=== PATIENT | male | born 1980 | race Two or more races ===

== ENCOUNTER 2023-06-10 18:46 | Inpatient (IN) | payer MEDICAID, OTHER ==
[~2023-06-10] VITALS: Ht 165.1 cm; Wt 78.5 kg
[2023-06-10] MEDS ORDERED: ONDANSETRON HCL 4 MG/2 ML VIAL IV ONE (21:15)
[2023-06-10] MEDS ORDERED: MORPHINE SULFATE 4 MG/ML SYR/VIAL IV ONE (21:15)
[2023-06-11 00:18] VITALS: PULSE 108; RESP 22; O2SAT 99
[2023-06-11 00:22] LABS: Basophils # (auto) 0 10 ^3/uL (0-0.2); Basophils % (auto) 0.2 % (0.0-2.0); Eosinophils # (auto) 0 10 ^3/uL (0-0.8); Eosinophils % (auto) 0.1 % (0.0-7.0); Hematocrit 41.8 % (41.0-53.0); Hemoglobin 14.4 g/dL (13.5-17.5); Lymphocytes % (auto) 19.2 % (10.0-50.0); Mean Corpuscular Hemoglobin 31.3 pg (28.0-32.0); Mean Corpuscular Hgb Conc. 34.3 g/dL (32.0-36.0); Mean Corpuscular Volume 91.2 fL (80.0-100.0); Monocytes # (auto) 1.3 10 ^3/uL (0-1.3); Monocytes % (auto) 8.5 % (0.0-12.0); Neutrophils # (auto) 11.1 10 ^3/uL (1.6-8.6); Red Blood Cells 4.59 10^6/uL (4.5-5.90); Red Cell Distribution Width 12.5 % (11.8-14.3); White Blood Cell 15.4 10^3/uL (4.4-10.8)
[2023-06-11] MEDS ORDERED: ONDANSETRON HCL 4 MG/2 ML VIAL IV ONE ×2 (00:30→03:30)
[2023-06-11] MEDS ORDERED: HYDROmorphone HCL 2 MG/ML VL/or syr IV ONE ×2 (00:30→03:30)
[2023-06-11] MEDS ORDERED: ceFAZolin 1GM/50ML 50 ML IV ONE (00:30)
[2023-06-11 00:34] LABS: Alanine Aminotransferase 18 U/L (7-40); Albumin 3.6 g/dL (3.2-4.8); Alkaline Phosphatase 77 U/L (46-116); Anion Gap 11 (5-15); Aspartate Aminotransferase 34 U/L (13-40); BUN/Creatinine Ratio 8.4 (10.0-20.0); Bilirubin, Total 0.4 mg/dL (0.2-1.0); Blood Urea Nitrogen 8 mg/dL (9-23); Calcium 7.7 mg/dL (8.5-10.1); Carbon Dioxide 22 mmol/L (20-30); Chloride 108 mmol/L (98-107); Glucose 102 mg/dL (74-106); Potassium 3.4 mmol/L (3.5-5.1); Sodium 141 mmol/L (136-145)
[2023-06-11 00:35] LABS: Total Protein 5.3 g/dL (5.7-8.2)
[2023-06-11 00:37] LABS: INR 1.02 (0.9-1.15); Prothrombin Time 10.7 sec (9.3-11.8)
[2023-06-11] MEDS ORDERED: ONDANSETRON HCL 4 MG/2 ML VIAL IV PRN (04:00)
[2023-06-11] MEDS ORDERED: POTASSIUM CHL 20 Meq TABLET PO ONE (04:00)
[2023-06-11] MEDS ORDERED: ACETAMINOPHEN 325 MG TAB PO PRN (04:00)
[2023-06-11 05:05] VITALS: PULSE 96; RESP 18; O2SAT 94
[2023-06-11 09:40] VITALS: PULSE 82; RESP 16; O2SAT 97
[2023-06-11] MEDS: HYDROcodone-ACET 5/325MG TAB PO PRN ×2 (10:23→16:01)
[2023-06-11 19:54] VITALS: BP 130/97; PULSE 92; RESP 16; TEMP 98.3; O2SAT 100
[2023-06-11] MEDS: MORPHINE SULFATE INJ 2 MG/ml SYRG IV PRN (20:13)
[2023-06-11 20:54] VITALS: BP 133/82; PULSE 109; RESP 18; TEMP 98.6; O2SAT 98
[2023-06-12] VITALS (7 sets, daily range): BP systolic 111–135; BP diastolic 72–88; PULSE 89–104; RESP 18–19; TEMP 98.3–99.7; O2SAT 95–98
[2023-06-12] MEDS: MORPHINE SULFATE INJ 2 MG/ml SYRG IV PRN ×2 (03:35→14:13)
[2023-06-12 07:05] LABS: Chloride 104 mmol/L (98-107); Potassium 3.6 mmol/L (3.5-5.1); Sodium 136 mmol/L (136-145)
[2023-06-12 07:06] LABS: Anion Gap 7 (5-15); Calcium 9.6 mg/dL (8.7-10.4); Carbon Dioxide 25 mmol/L (20-30)
[2023-06-12 07:11] LABS: BUN/Creatinine Ratio 11.1 (10.0-20.0); Blood Urea Nitrogen 10 mg/dL (9-23); Glucose 105 mg/dL (74-106)
[2023-06-12 07:13] LABS: Basophils # (auto) 0 10 ^3/uL (0-0.2); Basophils % (auto) 0.3 % (0.0-2.0); Eosinophils # (auto) 0 10 ^3/uL (0-0.8); Eosinophils % (auto) 0.1 % (0.0-7.0); Hematocrit 36.2 % (41.0-53.0); Hemoglobin 12.5 g/dL (13.5-17.5); Lymphocytes % (auto) 24.7 % (10.0-50.0); Mean Corpuscular Hemoglobin 31.3 pg (28.0-32.0); Mean Corpuscular Hgb Conc. 34.7 g/dL (32.0-36.0); Mean Corpuscular Volume 90.2 fL (80.0-100.0); Monocytes # (auto) 0.8 10 ^3/uL (0-1.3); Monocytes % (auto) 10.2 % (0.0-12.0); Neutrophils # (auto) 5.4 10 ^3/uL (1.6-8.6); Neutrophils % (auto) 64.7 % (37.0-80.0); Red Blood Cells 4.01 10^6/uL (4.5-5.90); Red Cell Distribution Width 12.1 % (11.8-14.3); White Blood Cell 8.3 10^3/uL (4.4-10.8)
[2023-06-12] MEDS: HYDROcodone-ACET 5/325MG TAB PO PRN (10:55)
[2023-06-12] MEDS: OXYCODONE W/ ACETAMINOPHEN 5/325MG TABLET PO PRN ×2 (18:07→23:35)
[2023-06-13] VITALS (7 sets, daily range): BP systolic 111–137; BP diastolic 75–95; PULSE 73–91; RESP 18–21; TEMP 97.9–98.7; O2SAT 96–99
[2023-06-13] MEDS: OXYCODONE W/ ACETAMINOPHEN 5/325MG TABLET PO PRN ×4 (04:37→23:45)
[2023-06-13] MEDS: MORPHINE SULFATE INJ 2 MG/ml SYRG IV PRN (15:29)
[2023-06-13] MEDS: DOCUSATE SOD 100 MG CAP PO SCH (21:43)
[2023-06-13 23:57] LABS: Urine WBC None Seen /hpf (0 - 3)
[2023-06-14] VITALS (16 sets, daily range): BP systolic 100–130; BP diastolic 62–90; PULSE 79–98; RESP 16–20; TEMP 97.5–99; O2SAT 91–100
[2023-06-14 00:13] LABS: Urine Bacteria NONE SEEN /hpf (None Seen); Urine Blood Negative /uL (Negative); Urine Clarity CLOUDY (Clear); Urine Color Colorless (Yellow); Urine Protein, UAD Negative (Negative); Urine Specific Gravity 1.015 (1.001-1.035); Urine Urobilinogen Normal (Negative); Urine pH 7.5 (5.0-8.0)
[2023-06-14] MEDS ORDERED: ceFAZolin 1GM/50ML 100 ML IV ONE (07:02)
[2023-06-14] MEDS ORDERED: LIDOCAINE 1% (LOCAL ANESTH.) PF 5ml SDV ONE (07:22)
[2023-06-14] MEDS ORDERED: BUPIVACAINE HCL 0.25% P/F 10 ML VIAL ONE (07:22)
[2023-06-14] MEDS ORDERED: KETOROLAC TROMETH 30 MG/ML 1ML VIAL ONE (07:39)
[2023-06-14] MEDS ORDERED: MIDAZOLAM HCL 2MG/2ML 2ml VIAL (1mg/ml) ONE (07:39)
[2023-06-14] MEDS ORDERED: GLYCOPYRROLATE 0.2 MG/ML 1ML VIAL ONE (07:39)
[2023-06-14] MEDS ORDERED: HYDROmorphone HCL 2 MG/ML VL/or syr ONE (07:39)
[2023-06-14] MEDS ORDERED: ONDANSETRON HCL 4 MG/2 ML VIAL ONE (07:39)
[2023-06-14] MEDS ORDERED: PROPOFOL 10 MG/ML 20 ML IV ONE (07:39)
[2023-06-14] MEDS ORDERED: DexAMETHasone SOD PHOS 10MG/1ML VIAL INJ ONE (07:39)
[2023-06-14] MEDS ORDERED: LIDOCAINE HCL 100 MG/5ML (2%) SYRG INJ IV ONE (07:40)
[2023-06-14] MEDS ORDERED: fentaNYL CITRATE 100 MCG/2 ML VL ONE (07:43)
[2023-06-14] MEDS ORDERED: HYDROmorphone HCL 2 MG/ML VL/or syr IV PRN (09:30)
[2023-06-14] MEDS ORDERED: ONDANSETRON HCL 4 MG/2 ML VIAL IV PRN (09:30)
[2023-06-14] MEDS: DOCUSATE SOD 100 MG CAP PO SCH ×2 (11:49→22:00)
[2023-06-15] VITALS (7 sets, daily range): BP systolic 117–131; BP diastolic 72–87; PULSE 75–84; RESP 16–20; TEMP 97.5–98.4; O2SAT 96–97
[2023-06-15 05:49] LABS: Basophils # (auto) 0 10 ^3/uL (0-0.2); Basophils % (auto) 0.1 % (0.0-2.0); Eosinophils # (auto) 0 10 ^3/uL (0-0.8); Eosinophils % (auto) 0.1 % (0.0-7.0); Hematocrit 32.7 % (41.0-53.0); Hemoglobin 11.4 g/dL (13.5-17.5); Lymphocytes # (auto) 1.6 10 ^3/uL (0.4-5.4); Lymphocytes % (auto) 14.9 % (10.0-50.0); Mean Corpuscular Hemoglobin 31.4 pg (28.0-32.0); Mean Corpuscular Hgb Conc. 34.8 g/dL (32.0-36.0); Mean Corpuscular Volume 90.2 fL (80.0-100.0); Monocytes # (auto) 0.5 10 ^3/uL (0-1.3); Monocytes % (auto) 4.5 % (0.0-12.0); Neutrophils # (auto) 8.4 10 ^3/uL (1.6-8.6); Neutrophils % (auto) 80.4 % (37.0-80.0); Red Blood Cells 3.62 10^6/uL (4.5-5.90); Red Cell Distribution Width 12.1 % (11.8-14.3); White Blood Cell 10.4 10^3/uL (4.4-10.8)
[2023-06-15 06:07] LABS: Calcium 9.6 mg/dL (8.7-10.4); Chloride 106 mmol/L (98-107); Potassium 3.6 mmol/L (3.5-5.1); Sodium 139 mmol/L (136-145)
[2023-06-15 06:08] LABS: Anion Gap 8 (5-15); Carbon Dioxide 25 mmol/L (20-30)
[2023-06-15 06:13] LABS: BUN/Creatinine Ratio 14.6 (10.0-20.0); Blood Urea Nitrogen 13 mg/dL (9-23); Glucose 136 mg/dL (74-106)
[2023-06-15] MEDS: DOCUSATE SOD 100 MG CAP PO SCH ×2 (10:07→21:32)
[2023-06-15] MEDS: CEFTRIAXONE SODIUM 2 GM in D5W 5% 100 ML IV SCH (10:08)
[2023-06-15] MEDS: OXYCODONE W/ ACETAMINOPHEN 5/325MG TABLET PO PRN (12:03)
[2023-06-15] MEDS: MORPHINE SULFATE INJ 2 MG/ml SYRG IV PRN ×2 (14:24→21:39)
[2023-06-15] MEDS: TEMAZEPAM 15 MG CAP PO PRN (22:51)
[2023-06-16] VITALS (7 sets, daily range): BP systolic 127–140; BP diastolic 89–103; PULSE 80–90; RESP 18–20; TEMP 98.2–99.1; O2SAT 95–97
[2023-06-16 05:47] LABS: Basophils # (auto) 0 10 ^3/uL (0-0.2); Basophils % (auto) 0.3 % (0.0-2.0); Eosinophils # (auto) 0.1 10 ^3/uL (0-0.8); Eosinophils % (auto) 0.9 % (0.0-7.0); Hematocrit 34.6 % (41.0-53.0); Hemoglobin 12.1 g/dL (13.5-17.5); Lymphocytes # (auto) 1.7 10 ^3/uL (0.4-5.4); Lymphocytes % (auto) 25.3 % (10.0-50.0); Mean Corpuscular Hemoglobin 31.7 pg (28.0-32.0); Mean Corpuscular Hgb Conc. 34.9 g/dL (32.0-36.0); Mean Corpuscular Volume 90.7 fL (80.0-100.0); Monocytes # (auto) 0.6 10 ^3/uL (0-1.3); Monocytes % (auto) 8.9 % (0.0-12.0); Neutrophils # (auto) 4.4 10 ^3/uL (1.6-8.6); Neutrophils % (auto) 64.6 % (37.0-80.0); Nucleated Red Blood Cells % 0.1 %; Red Blood Cells 3.82 10^6/uL (4.5-5.90); Red Cell Distribution Width 12.6 % (11.8-14.3); White Blood Cell 6.9 10^3/uL (4.4-10.8)
[2023-06-16 05:58] LABS: Anion Gap 8 (5-15); Carbon Dioxide 26 mmol/L (20-30); Chloride 107 mmol/L (98-107); Potassium 4.1 mmol/L (3.5-5.1); Sodium 141 mmol/L (136-145)
[2023-06-16 06:04] LABS: BUN/Creatinine Ratio 17.6 (10.0-20.0); Blood Urea Nitrogen 16 mg/dL (9-23); Glucose 94 mg/dL (74-106)
[2023-06-16] MEDS: DOCUSATE SOD 100 MG CAP PO SCH ×2 (09:53→21:15)
[2023-06-16] MEDS: CEFTRIAXONE SODIUM 2 GM in D5W 5% 100 ML IV SCH (09:54)
[2023-06-16] MEDS: MORPHINE SULFATE INJ 2 MG/ml SYRG IV PRN ×2 (09:59→16:58)
[2023-06-16] MEDS ORDERED: POLYETHYLENE GLYCOL 17 GM PWDR PO ONE (12:45)
[2023-06-16] MEDS: OXYCODONE W/ ACETAMINOPHEN 5/325MG TABLET PO PRN (19:01)
[2023-06-16] MEDS: TEMAZEPAM 15 MG CAP PO PRN (21:15)
[2023-06-16] MEDS ORDERED: ENOXAPARIN SOD 80 MG/0.8ML SYRINGE SC SCH (22:00)
[2023-06-17 05:00] VITALS: BP 125/87; PULSE 85; RESP 18; TEMP 98.6; O2SAT 97
[2023-06-17 08:00] VITALS: PULSE 82; RESP 18; O2SAT 97
[2023-06-17 09:00] VITALS: BP 120/84; PULSE 82; RESP 18; TEMP 98.6; O2SAT 97
[2023-06-17] MEDS: CEFTRIAXONE SODIUM 2 GM in D5W 5% 100 ML IV SCH (09:03)
[2023-06-17] MEDS: DOCUSATE SOD 100 MG CAP PO SCH ×2 (09:03→21:26)
[2023-06-17] MEDS: MORPHINE SULFATE INJ 2 MG/ml SYRG IV PRN (09:03)
[2023-06-17] MEDS: ENOXAPARIN SOD 40 MG/0.4 ML SYRINGE SC SCH (09:04)
[2023-06-17] MEDS: OXYCODONE W/ ACETAMINOPHEN 5/325MG TABLET PO PRN ×2 (10:58→16:59)
[2023-06-17 12:56] VITALS: BP 124/85; PULSE 77; RESP 18; TEMP 98.3; O2SAT 99
[2023-06-17 17:00] VITALS: BP 120/83; PULSE 82; RESP 18; TEMP 97.5; O2SAT 96
[2023-06-17] MEDS: TEMAZEPAM 15 MG CAP PO PRN (21:25)
[2023-06-17 22:00] VITALS: BP 127/83; PULSE 84; RESP 19; TEMP 98; O2SAT 98
[2023-06-18 05:00] VITALS: BP 107/78; PULSE 81; RESP 18; TEMP 97.7; O2SAT 98
[2023-06-18] MEDS ORDERED: AMOX875T3 PO (07:27)
[2023-06-18] MEDS ORDERED: PERCOT PO ×3 (07:27→20:01)
[2023-06-18] MEDS ORDERED: LEVO500T91 PO (07:27)
[2023-06-18] MEDS ORDERED: DOCU-94 PO (07:27)
[2023-06-18 09:00] VITALS: BP 132/90; PULSE 96; RESP 14; TEMP 98.2; O2SAT 97
[2023-06-18] MEDS: DOCUSATE SOD 100 MG CAP PO SCH (09:15)
[2023-06-18] MEDS: ENOXAPARIN SOD 40 MG/0.4 ML SYRINGE SC SCH (09:16)
[2023-06-18] MEDS ORDERED: levoFLOXacin 500MG 100 ML IV SCH (10:00)
[2023-06-18] MEDS: OXYCODONE W/ ACETAMINOPHEN 5/325MG TABLET PO PRN ×2 (11:58)
[2023-06-18] MEDS ORDERED: AMPICILLIN SOD 2GM INJ 2 GM in SODIUM CHL 0.9% 100 ML IV SCH (12:00)
== END 2023-06-18 13:40 | disposition home or self-care (01) | DRG 342 ==
LOC: EDBD 18:46 → ER 18:46 → OVERFLOW 06-11 03:50 → CENTRAL 06-11 18:36
PROVIDERS: ADMIT Nurse Practitioner; ATTEND Nurse Practitioner Acute Care
PROC: 0SS Lower Joints, Reposition (ICD-10-PCS; 2023-06-14)
PROC: 0HQMXZZ Repair Right Foot Skin, External Approach (ICD-10-PCS; principal; 2023-06-14 07:50)
DX: S92.901B Unspecified fracture of right foot, initial encounter for open fracture (principal); R65.10 Systemic inflammatory response syndrome (SIRS) of non-infectious origin without acute organ dysfunction; S97.81XA Crushing injury of right foot, initial encounter; E87.6 Hypokalemia; D72.829 Elevated white blood cell count, unspecified; S92.321B Displaced fracture of second metatarsal bone, right foot, initial encounter for open fracture; S92.351B Displaced fracture of fifth metatarsal bone, right foot, initial encounter for open fracture; X58.XXXA Exposure to other specified factors, initial encounter; Y93.89 Activity, other specified; Y92.89 Other specified places as the place of occurrence of the external cause; Y99.8 Other external cause status
CPT/HCPCS: 36415; 70450; 72125; 73620; 73630; 73700; 76000; 80048; 80053; 81001; 85025; 85610; 86850; 86900; 86901; 87070; 87075; 87077; 87186; 87205; 93971; 96365; 96375; G0378; J0690; J0696; J1100; J1885; J1956; J2250; J2405; J2704; J3490; J7060

== ENCOUNTER 2023-06-22 17:33 | Emergency (ER) | payer MEDICAID, OTHER ==
[~2023-06-22] VITALS: Ht 160 cm; Wt 7.0 kg
[~2023-06-22 17:33] MED LIST: AMOX875T3 PO; DOCU-94 PO; LEVO500T91 PO; PERCOT PO
[2023-06-22 22:28] LABS: Basophils # (auto) 0 10 ^3/uL (0-0.2); Basophils % (auto) 0.6 % (0.0-2.0); Eosinophils # (auto) 0.1 10 ^3/uL (0-0.8); Eosinophils % (auto) 1.6 % (0.0-7.0); Hematocrit 39.7 % (41.0-53.0); Hemoglobin 13.6 g/dL (13.5-17.5); Lymphocytes # (auto) 1.8 10 ^3/uL (0.4-5.4); Mean Corpuscular Hemoglobin 31.4 pg (28.0-32.0); Mean Corpuscular Hgb Conc. 34.3 g/dL (32.0-36.0); Mean Corpuscular Volume 91.6 fL (80.0-100.0); Monocytes # (auto) 0.7 10 ^3/uL (0-1.3); Neutrophils # (auto) 4.1 10 ^3/uL (1.6-8.6); Neutrophils % (auto) 60.8 % (37.0-80.0); Nucleated Red Blood Cells % 0.1 %; Red Blood Cells 4.33 10^6/uL (4.5-5.90); Red Cell Distribution Width 12.4 % (11.8-14.3); White Blood Cell 6.7 10^3/uL (4.4-10.8)
[2023-06-22 22:43] LABS: Alanine Aminotransferase 36 U/L (7-40); Albumin 4.8 g/dL (3.2-4.8); Alkaline Phosphatase 126 U/L (46-116); Anion Gap 6 (5-15); Aspartate Aminotransferase 18 U/L (13-40); BUN/Creatinine Ratio 18.1 (10.0-20.0); Bilirubin, Total 0.3 mg/dL (0.2-1.0); Blood Urea Nitrogen 21 mg/dL (9-23); Calcium 10.7 mg/dL (8.5-10.1); Carbon Dioxide 28 mmol/L (20-30); Chloride 105 mmol/L (98-107); Glucose 98 mg/dL (74-106); Potassium 4.1 mmol/L (3.5-5.1); Sodium 139 mmol/L (136-145); Total Protein 7.6 g/dL (5.7-8.2)
[2023-06-22] MEDS ORDERED: MORPHINE SULFATE 4 MG/ML SYR/VIAL IM ONE (22:45)
[2023-06-22] MEDS ORDERED: ONDANSETRON ODT 4 MG TAB PO ONE (22:45)
[2023-06-22 23:30] VITALS: TEMP 98.6; O2SAT 99
[2023-06-23 00:15] VITALS: BP 137/96; PULSE 76; RESP 18
[2023-06-23] MEDS ORDERED: NABU-72 PO (01:03)
[2023-06-23] MEDS ORDERED: PERCOT PO (01:03)
== END 2023-06-23 01:13 | disposition home or self-care (01) ==
LOC: ER 17:33
DX: S92.901D Unspecified fracture of right foot, subsequent encounter for fracture with routine healing (principal); G89.18 Other acute postprocedural pain; X58.XXXD Exposure to other specified factors, subsequent encounter
CPT/HCPCS: 36415; 73630; 80053; 83605; 85025; 87040; 96372; 99284; J2270; Q0162

== ENCOUNTER 2023-10-17 07:55 | Emergency (ER) | payer MEDICAID ==
[~2023-10-17] VITALS: Ht 172.7 cm; Wt 73.4 kg
[~2023-10-17 07:55] MED LIST changes: +NABU-72 PO
[2023-10-17 08:20] VITALS: TEMP 97.7
[2023-10-17] MEDS: ONDANSETRON HCL 4 MG/2 ML VIAL IV ONE ×3 (08:23→11:56)
[2023-10-17] MEDS: HYDROmorphone HCL 2 MG/ML VL/or syr IV ONE ×3 (08:24→11:56)
[2023-10-17] MEDS: SODIUM CHLORIDE 0.9% 1,000 ML IVB ONE ×3 (08:24→11:56)
[2023-10-17 08:31] LABS: Basophils # (auto) 0 10 ^3/uL (0-0.2); Basophils % (auto) 0.3 % (0.0-2.0); Eosinophils # (auto) 0 10 ^3/uL (0-0.8); Eosinophils % (auto) 0.4 % (0.0-7.0); Hematocrit 43.7 % (41.0-53.0); Hemoglobin 14.8 g/dL (13.5-17.5); Lymphocytes # (auto) 1.7 10 ^3/uL (0.4-5.4); Lymphocytes % (auto) 14.6 % (10.0-50.0); Mean Corpuscular Hgb Conc. 33.9 g/dL (32.0-36.0); Mean Corpuscular Volume 88.5 fL (80.0-100.0); Monocytes # (auto) 0.8 10 ^3/uL (0-1.3); Monocytes % (auto) 7.1 % (0.0-12.0); Neutrophils % (auto) 77.6 % (37.0-80.0); Red Blood Cells 4.94 10^6/uL (4.5-5.90); Red Cell Distribution Width 13.4 % (11.8-14.3); White Blood Cell 11.6 10^3/uL (4.4-10.8)
[2023-10-17 08:41] VITALS: PULSE 88; RESP 19; O2SAT 98
[2023-10-17 08:48] LABS: Alanine Aminotransferase 16 U/L (7-40); Albumin 4.3 g/dL (3.2-4.8); Alkaline Phosphatase 132 U/L (46-116); Anion Gap 3 (5-15); Aspartate Aminotransferase 17 U/L (13-40); Blood Urea Nitrogen 17 mg/dL (9-23); Calcium 9.7 mg/dL (8.7-10.4); Carbon Dioxide 27 mmol/L (20-30); Chloride 109 mmol/L (98-107); Glucose 98 mg/dL (74-106); Lipase 49 U/L (12-53); Magnesium 1.9 mg/dL (1.6-2.6); Potassium 3.8 mmol/L (3.5-5.1); Sodium 139 mmol/L (136-145)
[2023-10-17 08:49] LABS: Bilirubin, Total 0.5 mg/dL (0.2-1.0)
[2023-10-17 08:52] LABS: INR 1.01 (0.9-1.15); Partial Thromboplastin Time 28.1 SEC (24.5-34.5); Prothrombin Time 10.6 sec (9.3-11.8)
[2023-10-17] MEDS: IOHEXOL 300 MG/ML 100ML BOTTLE IJ ONE (09:41)
[2023-10-17] MEDS: KETOROLAC TROMETH 30 MG/ML 1ML VIAL IV ONE (09:41)
[2023-10-17] MEDS: TAMSULOSIN HYDROCHLORIDE 0.4 MG CAP PO ONE (11:55)
[2023-10-17 11:58] LABS: Urine Bacteria NONE SEEN /hpf (None Seen); Urine Blood 1+ /uL (Negative); Urine Clarity Clear (Clear); Urine Color Yellow (Yellow); Urine Mucus FEW (None Seen); Urine Protein, UAD TRACE (Negative); Urine Urobilinogen Normal (Negative); Urine WBC <1 /hpf (0 - 3); Urine pH 6.5 (5.0-8.0)
[2023-10-17 12:00] VITALS: O2SAT 95
[2023-10-17 12:08] LABS: Urine Specific Gravity > 1.050 (1.001-1.035)
[2023-10-17 12:16] LABS: Amphetamine Screen, Urine Neg (NEGATIVE); Barbiturate Scree,Urine Neg (NEGATIVE); Benzodiazephine Screen, Urine Neg (NEGATIVE); Cannabinoid Screen, Urine Neg (NEGATIVE); Cocaine Screen, Urine Neg (NEGATIVE); Opiate Scree,Urine Neg (NEGATIVE); Phencyclidine Screen, Urine Neg (NEGATIVE)
[2023-10-17] MEDS ORDERED: METO-281 PO (13:26)
[2023-10-17] MEDS ORDERED: IBU600T PO (13:26)
[2023-10-17] MEDS ORDERED: TAMS-35 PO (13:26)
[2023-10-17] MEDS ORDERED: ACET-1304 PO (13:26)
[2023-10-17 13:47] VITALS: BP 145/91; PULSE 90; RESP 16
== END 2023-10-17 13:44 | disposition home or self-care (01) ==
LOC: ER 07:55
DX: R10.32 Left lower quadrant pain (principal); Z79.899 Other long term (current) drug therapy
CPT/HCPCS: 36415; 71045; 74177; 80053; 80307; 80320; 81001; 83690; 83735; 85025; 85610; 85730; 87086; 96361; 96374; 96375; 96376; 99285; J1170; J1885; J2405; J7030; Q9967